=== PATIENT | female | born 1955 | race Caucasian/White ===

== ENCOUNTER 2024-08-05 09:34 | Emergency (ER) | payer MEDICARE, OTHER, SELFPAY ==
[2024-08-05 09:42] VITALS: BP 140/81
--- NOTE | 2024-08-05 10:11 | ED.GENMED ---
History of Present Illness
General
Chief Complaint: Abdominal Pain
Source: patient
Time Seen by Provider: 08/05/24 09:51
History of Present Illness
History of Present Illness:
69yoF with a history of kidney stones and osteoporosis presenting for evaluation of abdominal pain. Patient reports LLQ pain that began around 4 AM this morning. Pain woke her up from sleep. The pain has been constant and is gradually worsening.
She has had 4 bowel movements today which have been normal consistency. She also had 1 episode of vomiting. She believes she may have food poisoning as she ate at a restaurant yesterday for lunch. No prior history of similar pains. She has a
history of kidney stones but states this feels different. She denies any fevers, chills, dysuria. Previous abdominal surgeries include a hysteroscopy and D&C.
Phy Exam
General Physical Exam
General Presentation: well appearing and no apparent distress
General age: appears stated age
General Skin: warm and dry
General Habitus: normal
General Mental: alert
ENT Exam
ENT Exam: normocephalic
Cardiovascular Exam
Cardiovascular Exam: regular rate/rhythm and no murmur
Pulmonary Exam
Pulmonary Exam: lungs clear, no respiratory distress, no rales, no crackles, no rhonchi and no wheezing
Gastrointestinal Exam
Gastrointestinal Exam: soft, non distended and other (+Tenderness in the suprapubic and LLQ regions. No rebound or guarding.)
Neurological Exam
Neurological Exam: alert
[place] Coma Scale
Eye Opening: Spontaneous
Verbal Response: Oriented
Motor Response: Obeys Commands
GCS Total Score: 15
Skin Exam
Skin Exam: normal color and warm/dry
Psychiatric Exam
Psychiatric Exam: normal mood/affect
Course
Orders/Labs/Results
Orders:
Orders
08/05/24 10:11
CT Abd/pelvis W Iv Cont Urgent
Comment:
Reason For Exam: LLQ pain
0.9% Sodium Chloride 500 ml [Nss] 500 ml IV BOLUS
08/05/24 10:25
Comprehensive Metabolic Panel Urgent
Lipase Urgent
08/05/24 10:26
Complete Blood Count/With Diff Urgent
08/05/24 10:30
Urinalysis Reflex To Culture Urgent
Date Specimen was Collected: 08/05/24
Time Specimen was Collected: 10:26
Urine Microscopic Reflex Cult Urgent
08/05/24 10:37
Ketorolac [Toradol] 15 mg IV NOW STA
08/05/24 11:45
0.9% Sodium Chloride 500 ml [Nss] 500 ml IV BOLUS
08/05/24 12:28
Ketorolac [Toradol] 15 mg IV NOW STA
Oxycodone/Acetaminophen [Percocet 5/325] 1 tablet PO NOW STA
Abnormal Lab Results
08/05/24 08/05/24 08/05/24
10:25 10:26 10:30
WBC 15.4 H 10^3/uL
(4.8-10.8)
MCHC 32.8 L g/dL
(33.0-37.0)
MPV 11.3 H fL
(7.4-10.4)
Abs Immat Gran (auto) 0.1 H 10^3/uL
(0-0.05)
Absolute Neuts (auto) 13.8 H 10^3/uL
(1.4-6.5)
Absolute Lymphs (auto) 0.9 L 10^3/uL
(1.2-3.4)
Neutrophils % 89.2 H %
(42.2-75.2)
Lymphocytes % 5.7 L %
(20.5-51.1)
BUN 24 H mg/dl
(7-17)
Glucose 141 H mg/dl
(70-99)
Urine Ketones Trace A
(Negative)
Ur Occult Blood Reflex 1+ A
(Negative)
Urine RBC 16-20 A /HPF
(0-2)
Urine Bacteria (Reflex) Few A
(Negative)
08/05/24 10:26
08/05/24 10:25
Vital Signs
Initial and Last Documented VS:
Initial Vital Signs
Temp Pulse Resp BP Pulse Ox
98.3 F 84 16 140/81 100
08/05/24 09:42 08/05/24 09:42 08/05/24 09:42 08/05/24 09:42 08/05/24 09:42
Last Documented Vital Signs
Temp Pulse Resp BP Pulse Ox
98.3 F 96 20 95/54 96
08/05/24 09:42 08/05/24 11:00 08/05/24 11:00 08/05/24 11:00 08/05/24 10:30
MDM/Problems Addressed
Differential Diagnosis Includes:
69yoF here with LLQ pain that woke her up from sleep this morning. One episode of vomiting today. No f/c. No history of the same. She is afebrile and hemodynamically stable. She is well appearing in no distress. No signs of peritonitis on abdominal
exam. Differential diagnosis includes but is not limited to: diverticulitis, colitis, gastroenteritis, kidney stone
Initial ED plan: Check abdominal labs, UA, and CT abdomen. IV fluid bolus. She declines analgesics.
*Critical Care Note
Total Time (30-74mins, 75-104mins- exclusive of procedures): Not Applicable
Update Note
Update Note:
CT shows an 8mm proximal L ureteral stone with moderate hydronephrosis. Renal function is stable. Microscopic hematuria noted on UA without signs of infection. Pain has improved to a 3/10 in severity after receiving medications. No indication for
hospitalization. I reached out to urologist dietitian consultant to help expedite outpatient follow up. Supportive care discussed with patient including hydration, urine straining, and Flomax. Prescriptions also provided for Zofran and oxycodone. Strict ED
return precautions with patient including uncontrolled pain and fevers. She expressed understanding and is agreement with plan. She was discharged in stable condition.
ED Attending Note
-
Portions of this chart may have been created with voice recognition software.� Occasional wrong word or��sound alike� substitutions may have occurred due to the inherent limitations of voice recognition software.
Discharge Plan
Departure
Patient Disposition: Home (Routine Discharge)
Date of Disposition: 08/05/24
Time of Disposition: 13:14
Patient with high blood pressure during this ER visit?: No
Discharge Problem:
Calculus of left ureter
Instructions: Kidney stones in adults, How to Strain Your Urine
Prescriptions:
New
oxycodone 5 mg tablet
5 mg PO Q6H PRN (Reason: Pain) Qty: 12 0RF
tamsulosin [Flomax] 0.4 mg capsule
0.4 mg PO HS Qty: 10 0RF
ondansetron 4 mg tablet,disintegrating
4 mg PO Q6H PRN (Reason: nausea and vomiting) Qty: 20 0RF
No Action
multivitamin Tablet
1 tab PO DAILY
naproxen sodium [Aleve] 220 mg Tablet
440 mg PO BID PRN (Reason: lower back pain)
lidocaine 5 % adhesive patch,medicated
1 patch topical DAILY PRN (Reason: lower back-on AM; off PM)
Ocuvite Tablet
1 tab PO DAILY
Probiotic 20 billion cell Capsule
20,000 mmu cells PO DAILY
Caltrate 600 plus D 600 mg-20 mcg (800 unit) Tablet,Chewable
1 tab PO BID
glucosamine-chondroitin [Osteo Bi-Flex] 250-200 mg Tablet
1 tab PO DAILY
Referrals:
Bill Torres MD [Active] -
UNKNOWN - PT NOT,INTERVIEWE [Unknown Provider] -
Activity Restrictions/Additional Instructions:
Drink plenty of fluids. Strain your urine and take Flomax until stone has passed.
Take Tylenol 650mg and ibuprofen 600mg every 6 hours as needed for pain. Take oxycodone only as needed for severe breakthrough pain. Take Zofran as needed for nausea.
Please call today to schedule a follow-up with urology.
Return to the ER with any worsening symptoms, uncontrolled pain, fevers.
Discharge Date and Time
Print Language: LAO
[2024-08-05 10:29] VITALS: BP 132/87
[2024-08-05] MEDS: NSS 500 IV ×2 (10:30→12:03)
[2024-08-05 10:41] LABS: Urine Albumin Negative (Neg - Trace); Urine Bilirubin Negative (Negative); Urine Character Clear (Clear); Urine Color Yellow; Urine Glucose Negative (Negative); Urine Ketone Trace (Negative); Urine Leukocyte Negative (Negative); Urine Nitrite Negative (Negative); Urine Occult Blood 1+ (Negative); Urine Urobilinogen Negative (Neg - 1+)
[2024-08-05 10:45] LABS: % Basophils 0.5 % (0-2); % Eosinophils 0.1 % (0-6); % Immature Granulocytes 0.4 % (0-0.5); % Lymphocytes 5.7 % (20.5-51.1); % Monocytes 4.1 % (1.7-9.3); % Neutrophils 89.2 % (42.2-75.2); Absolute Basophils 0.1 10^3/uL (0-0.2); Absolute Immature Granulocytes 0.1 10^3/uL (0-0.05); Absolute Lymphocytes 0.9 10^3/uL (1.2-3.4); Absolute Monocytes 0.6 10^3/uL (0.1-0.6); Absolute Neutrophils 13.8 10^3/uL (1.4-6.5); Hematocrit 41.2 % (37.0-47.0); Hemoglobin 13.5 g/dL (12.0-16.0); Mean Corp Hgb Conc. 32.8 g/dL (33.0-37.0); Mean Corpuscular Hgb 30.1 pg (27.0-31.0); Mean Platelet Volume 11.3 fL (7.4-10.4); Nucleated Red Blood Cells % 0 %; Platelet Count 203 10^3/uL (130-400); Red Blood Cell Count 4.48 10^6/uL (4.20-5.40); Red Cell Dist. Width 13.3 % (11.5-14.5); White Blood Cell Count 15.4 10^3/uL (4.8-10.8)
[2024-08-05 10:58] LABS: ALT (SGPT) 20 U/L (0-35); AST (SGOT) 23 U/L (14-36); Albumin 4.4 g/dl (3.5-5.0); Alkaline Phosphatase 65 U/L (38-126); Blood Urea Nitrogen 24 mg/dl (7-17); Calcium 10.2 mg/dl (8.4-10.2); Carbon Dioxide 22 mmol/L (22-30); Chloride 107 mmol/L (98-107); Glucose 141 mg/dl (70-99); Lipase 79 U/L (23-300); Potassium 3.5 mmol/L (3.5-5.1); Sodium 142 mmol/L (135-145); Total Bilirubin 0.5 mg/dl (0.2-1.3); eGFR > 60.00
[2024-08-05 11:00] VITALS: BP 95/54
[2024-08-05] MEDS: TORADOL 15 MG IV ×2 (11:12→12:33)
[2024-08-05 11:28] LABS: Urine Mucus Few
[2024-08-05 11:31] LABS: Urine Amorphous Seen; Urine Bacteria Few (Negative); Urine Red Blood Cell 16-20 /HPF (0-2); Urine White Cell 0-2 /HPF (0-5)
[2024-08-05] MEDS: PERCOCET 5/325 1 TABLET PO (12:32)
== END 2024-08-05 13:47 | disposition home or self-care (01) ==
LOC: EMR 09:34
PROVIDERS: Physician Assistant; EMERGENCY PHYSICIAN Emergency Medicine; FAMILY PHYSICIAN Family Medicine
DX: N13.2 Hydronephrosis with renal and ureteral calculous obstruction (principal); Z87.442 Personal history of urinary calculi
CPT/HCPCS: 99284; 96374; 96376; 96361; 74177; 80053; 81003; 81015; 83690; 85025; Q9967

== ENCOUNTER 2024-08-09 06:30 | Day surgery (SDC) | payer MEDICARE, OTHER, SELFPAY ==
--- NOTE | 2024-08-06 13:40 | PTCARENOTE ---
Abnormal WBC's on 08/05/24. Emily at Dr. Torres's office aware.
[2024-08-09] VITALS (11 sets, daily range): BP systolic 120–145; BP diastolic 77–87; BMI 26.6
[2024-08-09] MEDS: SUBLIMAZE 25 MCG IV ×2 (13:51→14:16)
[2024-08-14 10:58] LABS: Stone Analysis Mass 16 mg
== END 2024-08-09 15:37 | disposition home or self-care (01) ==
LOC: SDS 06:30
PROVIDERS: ATTENDING PHYSICIAN Urology
DX: N20.1 Calculus of ureter (principal)
CPT/HCPCS: 52356; 74018; 76000; 82365; 93005; C1769; C1894; C2617

== ENCOUNTER → 2025-07-12 10:50 | Outpatient (REF) | payer MEDICARE, OTHER, SELFPAY ==
[2025-07-12 11:48] LABS: Blood Urea Nitrogen 15 mg/dl (7-17); Calcium 9.5 mg/dl (8.4-10.2); Carbon Dioxide 24 mmol/L (22-30); Chloride 104 mmol/L (98-107); Glucose 101 mg/dl (70-99); Sodium 137 mmol/L (135-145); eGFR > 60.00
[2025-07-12 11:55] LABS: Potassium 4.2 mmol/L (3.5-5.1)
== END ==
LOC: REG 10:50
PROVIDERS: ATTENDING PHYSICIAN Family Medicine
DX: Z01.812 Encounter for preprocedural laboratory examination (principal)
CPT/HCPCS: 36415; 80048

== ENCOUNTER → 2025-07-13 08:58 | Outpatient (REF) | payer MEDICARE, OTHER, SELFPAY | LOC: RAD 08:58 | PROVIDERS: ATTENDING PHYSICIAN Family Medicine | DX: R10.32 Left lower quadrant pain (principal); R50.9 Fever, unspecified | CPT/HCPCS: 74177; Q9967 ==

== ENCOUNTER → 2025-08-02 12:33 | Outpatient (REF) | payer MEDICARE, OTHER, SELFPAY | LOC: RAD 12:33 | PROVIDERS: ATTENDING PHYSICIAN Urology; FAMILY PHYSICIAN Family Medicine | DX: N20.1 Calculus of ureter (principal) | CPT/HCPCS: 76775 ==